=== PATIENT | male | born 1940 | race Caucasian/White ===

== ENCOUNTER 2016-06-18 09:49 | Inpatient (IN) | payer OTHER, MEDICARE ==
--- NOTE | 2016-06-15 16:49 | MH ---
cc: CHUY LAMA DATE OF ADMISSION 06/18/2016 ADMISSION DIAGNOSIS Difficulty with gait, short-term memory loss and urinary incontinence, evaluation for normal pressure hydrocephalus HISTORY OF PRESENT ILLNESS This is a 75-year-old male who presented to us on 05/11/2016 with complaints of difficulty walking, short term memory loss and urinary incontinence. He presented with his who states that his symptoms have progressively gotten worse after he was walking his dog two years ago and fell forward, hit head on a stop sign and had to go to the hospital for stitches. She states he had a CT of the head and it did not reveal any blood. She states since then he has had short, shuffled, wide-based gait, difficulty with short-term memory and urinary incontinence. She states he wears Depends now, because he sometimes has michelle incontinence of urine. His short-term memory is also bad and she states he has been forgetting to take his medication and she has gotten him a pill case to help him remember. He has bone on bone in his ankles and has some difficulty ambulating related to this, but he has a distinct wide-based short shuffled gait. PAST MEDICAL HISTORY 1. Hypertension, 2. Dementia, 3. Depression, 4. Gastroesophageal esophageal reflux disease, 5. Hyperlipidemia. PAST SURGICAL HISTORY 1. Knee replacement 2. Appendectomy when he is 8 years old MEDICATIONS 1. Pantoprazole 40 mg daily. 2. Simvastatin 20 mg daily. 3. Hydrochlorothiazide 25 mg daily. 4. Quinapril 40 mg daily. 5. Finasteride 5 mg every other day 6. Fluoxetine 10 mg daily. 7. Vitamin C 250 mg daily, 8. Vitamin B6 100 mg daily. 9. Vitamin D 1000 international units daily. ALLERGIES She has no known drug allergies. FAMILY HISTORY His mother is , had cancer. His father is of natural causes. He has a brother who is alive. SOCIAL HISTORY He is a high school administer. He is . He has two children. He does not smoke. REVIEW OF SYSTEMS CONSTITUTIONAL: Denies any fever or chills. EARS, NOSE and THROAT: No pharyngitis, exudates or bloody drainage from his nose CARDIOVASCULAR: He denies any chest pain or palpitations RESPIRATORY: No cough or shortness of breath GENITOURINARY: No dysuria OR hematuria. MUSCULOSKELETAL: Positive for unsteady gait. SKIN: No rashes or pruritus. NEUROLOGIC: Positive for difficulty with memory and confusion. GASTROINTESTINAL: No nausea, vomiting, abdominal pain PSYCHIATRIC: No anxiety. Positive for depression. ENDOCRINE: Positive for polyuria, HEMATOLOGIC: No bruising or bleeding tendencies. PHYSICAL EXAMINATION HEAD: Normocephalic, atraumatic. NECK: Supple. No carotid bruits heard on auscultation. LUNGS: Clear to auscultation bilaterally HEART: Regular rate and rhythm, normal S1, S2 ABDOMEN: Soft, nontender. Positive bowel sounds. He is obese. SKIN: Reveals no cyanosis or erythema MUSCULOSKELETAL: He has 5/5 strength in the upper and lower extremities. He ambulates with a wide-based, short, shuffled gait. NEUROLOGIC: He is awake, alert, oriented. Cranial nerves II-XII appear grossly intact. Speech is fluent. Comprehension is good. He follows commands well. sensation is intact in the upper and lower extremities. IMAGING STUDIES Reviewed an MRI of the brain from May 03, 2016 which reveals ventriculomegaly with periventricular white matter, transependymal foot migration. IMPRESSION A 75-year-old male with a two-year history of progressively worsening short-term memory loss, unsteady gait and urinary incontinence. He does have ventriculomegaly with transependymal foot migration noted on the MRI scan of the brain. 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 PLAN We have discussed temporary lumbar spinal drain to see if this will help with his symptoms and then, if so, we would consider a ventriculoperitoneal shunt placement. The procedure was explained in detail and all of their questions were answered to their satisfaction. The patient will be scheduled for lumbar spinal drain placement with radiology special procedures group and he will subsequently be admitted to the hospital. Chuy Lama MD Dictated by MARISELA Reed/ /4:17 PM /4:36 PM
[~2016-06-18] VITALS: Ht 180.3 cm; Wt 107.2 kg
[2016-06-18] VITALS (7 sets, daily range): BP systolic 141–155; BP diastolic 86–117; PULSE 45–135; RESP 16–21; TEMP 96.8–98; O2SAT 93–99
[~2016-06-18 09:49] MED LIST: DIFL500T PO; FINA5TAB2 PO; FLUO10CA5 PO; HYDR25TA5 PO; PANT40TA3 PO; PYRI1TAB; QUIN40TA2 PO; SIMV20TA PO; VESI5TAB PO; VITA250T3 PO
[2016-06-18] MEDS ORDERED: VISICAP PO (10:17)
[2016-06-18] MEDS ORDERED: VITA100018 PO (10:17)
[2016-06-18] MEDS ORDERED: ACETAMINOPHEN 325 MG TAB PO PRN (10:45)
[2016-06-18] MEDS ORDERED: cloNIDine HCL 0.1 MG TAB PO PRN (10:45)
[2016-06-18] MEDS ORDERED: SODIUM CHLORIDE 0.9% FLUSH 5 ML FLUSH IVF PRN (10:45)
[2016-06-18] MEDS ORDERED: MORPHINE SULFATE 4 MG/ML INJ IV PRN (10:45)
[2016-06-18] MEDS ORDERED: ceFAZolin 2 GM PREMIX 50 ML IV SCH (10:45)
[2016-06-18] MEDS ORDERED: MAGNESIUM HYDROXIDE SUSP 30 ML CUP PO PRN (10:45)
[2016-06-18] MEDS: SODIUM CHLORIDE 0.9% FLUSH 5 ML FLUSH IVF SCH ×2 (10:45→21:00)
[2016-06-18] MEDS ORDERED: ACETAMINOPHEN/HYDROcodone 325 MG/10 MG TAB PO PRN (10:45)
[2016-06-18] MEDS ORDERED: SODIUM CHLOR 0.45% 1000 ML IV SCH (11:00)
[2016-06-18 11:05] LABS: AUTOMATED NEUTROPHIL # 5.5 TH/MM3 (1.8-7.7); BASOPHIL # 0.1 TH/MM3 (0-0.2); BASOPHIL % 0.6 % (0.0-2.0); EOSINOPHIL # 0.1 TH/MM3 (0-0.4); EOSINOPHIL % 1.5 % (0.0-4.0); HEMATOCRIT 47.6 % (39.0-51.0); HEMO FLAGS DIFF FINAL; LYMPH % 27.3 % (9.0-44.0); LYMPHOCYTE # 2.3 TH/MM3 (1.0-4.8); MEAN CELL VOLUME 90.1 FL (80.0-100.0); MEAN CORPUSCULAR HEMOGLOBIN 30.8 PG (27.0-34.0); MEAN CORPUSCULAR HGB CONC 34.1 % (32.0-36.0); MONO % 6.1 % (0.0-8.0); NEUT % 64.5 % (16.0-70.0); PLATELET COUNT 179 TH/MM3 (150-450); RED BLOOD COUNT 5.28 MIL/MM3 (4.50-5.90); RED CELL DISTRIBUTION WIDTH 13.3 % (11.6-17.2); WHITE BLOOD COUNT 8.5 TH/MM3 (4.0-11.0)
[2016-06-18 11:15] LABS: APTT (PATIENT) 25.7 SEC (24.3-30.1)
[2016-06-18 11:17] LABS: BICARBONATE 27.3 MEQ/L (21.0-32.0)
[2016-06-18] MEDS ORDERED: MIDAZOLAM HCL 5 MG/5 ML VIAL ONE (12:53)
[2016-06-18] MEDS ORDERED: fentaNYL CITRATE 250 MCG/5 ML AMP ONE (12:53)
--- NOTE | 2016-06-18 13:26 | PD.RAD ---
Post Procedure Progress Note Pre Procedure Diagnosis: (1) Normal pressure hydrocephalus Post Procedure Diagnosis: (1) Normal pressure hydrocephalus Procedure Date: Jun 18, 2016 Supervising Radiologist: Linwood Laguerre Estimated blood loss: None Anesthesia: Local, Conscious Sedation Plan of Activity Patient to Unit: ROPU Patient Condition: Good Additional Comments: Lumbar drain placed at the L3/L4 level without difficulty. Catheter tip at T11. Clear CSF draining. See PACS Report for procedural detail/treatment Linwood Laguerre MD Jun 18, 2016 13:26
--- NOTE | 2016-06-18 16:09 | RADRPT ---
EXAM DATE/TIME: 06/18/2016 11:50 [facility] COMPARISON: No previous studies available for comparison. INDICATIONS : Patient is in need of a lumbar drain placement for evaluation of NPH. MEDICAL HISTORY : History of short term memory loss, urinary incontinence, GERD, depression. SURGIAL HISTORY : History of appendectomy, knee replacement. ENCOUNTER: Initial ACUITY: >1 year PAIN SCORE: 0/10 LUMBAR PUNCTURE TIME: 1314 hours FLUORO TIME: 1.7 minutes IMAGE SERIES: 1 SEDATION TIME: 15 minutes LEVEL: Tip of lumbar drain was placed at T11 MEDICATION(S): 1.) 0.5 mg IV 2.) 25 mcg IV Prophylactic antibiotics were administered with appropriate pre-procedure timing. Vancomycin within 2 hrs of procedure, Ancef (or alternative) within 1 hr of procedure. DEVICE(S): 1.) 5 Hebrew lumbar drain catheter PROCEDURE : 1. Fluoroscopically guided lumbar drain placement. 2. Conscious sedation with continuous EKG and oximetry monitoring. The risks, benefits and alternatives to the procedure were explained and verbal and written consent w as obtained. The site was prepped in sterile fashion. Full sterile technique was used, including ca p, mask, sterile gloves and gown and a large sterile sheet. Hand hygiene and 2% chlorhexidine and/or betadine/alcohol prep was utilized per protocol for cutaneous antisepsis. The skin and subcutaneous tissues were infiltrated with local anesthetic solution. With fluoroscopic guidance the lumbar thecal sac was punctured with a 14 gauge Touhy needle. There wa s immediate return of clear CSF. A lumbar drain was placed with its tip at the level of the T11 as de scribed above and the catheter was sutured in place. CSF was identified returning from the catheter a t the termination of the procedure. Conscious sedation was performed with the prescribed dosages and duration as above in the presence of an independent trained radiology nurse to assist in the monitoring of the patient. EKG and oximetry remained stable throughout the procedure. The patient tolerated the procedure well and there were n o complications. The patient was sent to post anesthesia recovery in stable condition. CONCLUSION: Uncomplicated lumbar drain placement as above. Linwood Laguerre MD on June 18, 2016 at 15:57 Board Certified Radiologist. This report was verified electronically.
[2016-06-18] MEDS: SODIUM CHLOR 0.9% 1000 ML INJ 1,000 ML IV SCH (20:42)
[2016-06-19 01:04] VITALS: BP 163/88; PULSE 46; RESP 20; TEMP 95.9; O2SAT 96
[2016-06-19 05:05] VITALS: BP 136/86; PULSE 42; RESP 20; TEMP 96.3; O2SAT 97
[2016-06-19] MEDS: SODIUM CHLOR 0.9% 1000 ML INJ 1,000 ML IV SCH ×2 (06:15→16:42)
[2016-06-19 07:51] VITALS: BP 175/95; PULSE 52; RESP 18; TEMP 96.9; O2SAT 94
[2016-06-19] MEDS: ONDANSETRON HCL 4 MG/2 ML VIAL IV PRN (08:32)
[2016-06-19] MEDS: CHOLECALCIFEROL (VIT D3) 1000 UNIT TAB PO SCH (08:35)
[2016-06-19] MEDS: MULTIVITAMIN-OPHTHALMIC 1 TAB PO SCH (08:35)
[2016-06-19] MEDS: LISINOPRIL 20 MG TAB PO SCH (08:36)
[2016-06-19] MEDS: FLUoxetine HCL 10 MG CAP PO SCH (08:36)
[2016-06-19] MEDS: SODIUM CHLORIDE 0.9% FLUSH 5 ML FLUSH IVF SCH ×2 (08:36→21:00)
[2016-06-19] MEDS: PRAVASTATIN SOD 40 MG TAB PO SCH (08:36)
[2016-06-19] MEDS: PANTOPRAZOLE SOD 40 MG DELAYED RELEASE TAB PO SCH (08:36)
[2016-06-19] MEDS: HYDROCHLOROTHIAZIDE 25 MG TAB PO SCH (08:36)
--- NOTE | 2016-06-19 10:23 | HHI.NSPN ---
(Blu Banda) History Chief Complaint: Mild nausea this am. (Blu Banda) Interval History 06/19/16: Pt underwent lumbar spinal drain placement for NPH evaluation. He denies headache laying flat. Mild nausea this morning. Urinating well. ( Blu Banda) Review of Systems General: Negative for: fever, chills, insomnia Respiratory: Negative for: shortness of breath, cough, sputum Cardiovascular: Negative for: chest pain Gastrointestinal: Negative for: nausea, vomitting, diarrhea, constipation ( Blu Banda) Exam Results Vital Signs Date Time Temp Pulse Resp B/P Pulse Ox O2 Delivery O2 Flow Rate FiO2 06/19/16 07:51 96.9 52 18 175/95 94 06/18/16 21:05 Room Air Intake and Output 06/18/16 06/18/16 06/19/16 08:00 16:00 00:00 Output Total 730 ml Balance -730 ml (Blu Banda) Physical Examination Resp: CTA bilaterally Heart: NSR no murmurs Abd: Soft positive bs Skin: No cyanosis or erythema Muscle: Moves all 4 extremities well. Ambulated with PT yesterday Neuro: Pt awake and alert. Mildly confused. Follows commands well. Speech clear. Lumbar spinal drain in place draining clear CSF. (Blu Banda) Lab, Micro, Other Results 06/18/16 06/18/16 06/19/16 15:00 23:00 07:00 Output Total 730 ml 280 ml Balance -730 ml -280 ml Output Urine Total 650 ml 200 ml Drainage Total 80 ml 80 ml # Bowel Movements 0 Laboratory Tests Test 06/18/16 10:33 White Blood Count 8.5 TH/MM3 Red Blood Count 5.28 MIL/MM3 Hemoglobin 16.2 GM/DL Hematocrit 47.6 % Mean Corpuscular Volume 90.1 FL Mean Corpuscular Hemoglobin 30.8 PG Mean Corpuscular Hemoglobin 34.1 % Concent Red Cell Distribution Width 13.3 % Platelet Count 179 TH/MM3 Mean Platelet Volume 8.3 FL Neutrophils (%) (Auto) 64.5 % Lymphocytes (%) (Auto) 27.3 % Monocytes (%) (Auto) 6.1 % Eosinophils (%) (Auto) 1.5 % Basophils (%) (Auto) 0.6 % Neutrophils # (Auto) 5.5 TH/MM3 Lymphocytes # (Auto) 2.3 TH/MM3 Monocytes # (Auto) 0.5 TH/MM3 Eosinophils # (Auto) 0.1 TH/MM3 Basophils # (Auto) 0.1 TH/MM3 CBC Comment DIFF FINAL Differential Comment Prothrombin Time 11.0 SEC Prothromb Time International 1.0 RATIO Ratio Activated Partial 25.7 SEC Thromboplast Time Sodium Level 138 MEQ/L Potassium Level 4.0 MEQ/L Chloride Level 100 MEQ/L Carbon Dioxide Level 27.3 MEQ/L Anion Gap 11 MEQ/L Blood Urea Nitrogen 23 MG/DL Creatinine 1.43 MG/DL Estimat Glomerular Filtration 48 ML/MIN Rate Random Glucose 160 MG/DL Calcium Level 9.5 MG/DL (Blu Banda) Medical Decision Making Impression and Plan A: 75 y/o M s/p lumbar spinal drain placement for evaluation of NPH P: Continue with lumbar spinal drain likely d/c drain in am tomorrow. Continue with PT (Blu Banda) Attending Statement The exam, history, and the medical decision-making described in the above note were completed with the assistance of the mid-level provider. I reviewed and agree with the findings presented. I attest that I had a [id number] encounter with the patient on the same day, and personally performed and documented my assessment and findings in the medical record. relates that the she noted some improvement in his gait when he was walking with physical therapy. Continue with the lumbar spinal drainage until tomorrow morning. ( Hugo Sanchez MD) Blu Banda Jun 19, 2016 10:23 Hugo Sanchez MD Jun 19, 2016 17:09
[2016-06-19 12:21] VITALS: BP 124/65; PULSE 88; RESP 18; TEMP 96.2; O2SAT 94
[2016-06-19 16:15] VITALS: BP 121/71; PULSE 52; RESP 18; TEMP 97.1; O2SAT 92
[2016-06-19 20:00] VITALS: BP 124/67; PULSE 57; RESP 20; TEMP 98.5; O2SAT 94
[2016-06-20] VITALS: BP 137/78; PULSE 50; RESP 18; TEMP 96.7; O2SAT 96
[2016-06-20] MEDS: ONDANSETRON HCL 4 MG/2 ML VIAL IV PRN (00:28)
[2016-06-20] MEDS: SODIUM CHLOR 0.9% 1000 ML INJ 1,000 ML IV SCH (02:42)
[2016-06-20 04:00] VITALS: BP 149/85; PULSE 65; RESP 20; TEMP 95.7; O2SAT 96
[2016-06-20 08:17] VITALS: BP 142/75; PULSE 48; RESP 19; TEMP 97; O2SAT 94
[2016-06-20] MEDS ORDERED: FINASTERIDE 5 MG TAB PO SCH (09:00)
--- NOTE | 2016-06-20 09:27 | HHI.NSPN ---
(Blu Banda) History Chief Complaint: Mild nausea last night. (Blu Banda) Interval History 06/19/16: Pt underwent lumbar spinal drain placement for NPH evaluation. He denies headache laying flat. Mild nausea this morning. Urinating well. 06/20/16: Pt awake and alert. Had mild headache last night and nausea. Feels okay now. Lumbar spinal drain in place draining well. (Blu Banda) Review of Systems General: Negative for: fever, chills, insomnia Respiratory: Negative for: shortness of breath, cough, sputum Cardiovascular: Negative for: chest pain Gastrointestinal: Negative for: nausea, vomitting, diarrhea, constipation ( Blu Banda) Exam Results Vital Signs Date Time Temp Pulse Resp B/P Pulse Ox O2 Delivery O2 Flow Rate FiO2 06/20/16 08:17 97.0 48 19 142/75 94 06/19/16 21:08 Room Air Intake and Output 06/19/16 06/19/16 06/20/16 08:00 16:00 00:00 Intake Total 600 ml 300 ml Output Total 280 ml 100 ml Balance -280 ml 600 ml 200 ml (Blu Banda) Physical Examination Resp: CTA bilaterally Heart: NSR no murmurs Abd: Soft positive bs Skin: No cyanosis or erythema Muscle: Moves all 4 extremities well. Neuro: Pt awake and alert. Follows commands well. Speech clear. Lumbar spinal drain in place draining clear CSF. (Blu Banda) Lab, Micro, Other Results 06/19/16 06/19/16 06/20/16 15:00 23:00 07:00 Intake Total 600 ml 300 ml 1100 ml Output Total 100 ml 280 ml Balance 600 ml 200 ml 820 ml Intake Oral 600 ml 300 ml 300 ml IV Total 800 ml Output Urine Total 100 ml 200 ml Drainage Total 80 ml # Voids 2 # Bowel Movements 2 (Blu Banda) Medical Decision Making Impression and Plan A: 75 y/o M s/p lumbar spinal drain placement for evaluation of NPH P: Discussed with PT this am he will have PT early and will remove spinal drain. Pt will need to be on bedrest for 6 hours after drain removed. Discharge home later today if no CSF drainage from exit site. (Blu Banda) Attending Statement The exam, history, and the medical decision-making described in the above note were completed with the assistance of the mid-level provider. I reviewed and agree with the findings presented. I attest that I had a [id number] encounter with the patient on the same day, and personally performed and documented my assessment and findings in the medical record. (Hugo Sanchez MD) Blu Banda Jun 20, 2016 09:27 Hugo Sanchez MD Jun 20, 2016 18:38
[2016-06-20] MEDS: PRAVASTATIN SOD 40 MG TAB PO SCH (09:35)
[2016-06-20] MEDS: HYDROCHLOROTHIAZIDE 25 MG TAB PO SCH (09:36)
[2016-06-20] MEDS: PANTOPRAZOLE SOD 40 MG DELAYED RELEASE TAB PO SCH (09:36)
[2016-06-20] MEDS: CHOLECALCIFEROL (VIT D3) 1000 UNIT TAB PO SCH (09:36)
[2016-06-20] MEDS: LISINOPRIL 20 MG TAB PO SCH (09:36)
[2016-06-20] MEDS: SODIUM CHLORIDE 0.9% FLUSH 5 ML FLUSH IVF SCH (09:37)
[2016-06-20] MEDS: FLUoxetine HCL 10 MG CAP PO SCH (09:37)
[2016-06-20] MEDS: MULTIVITAMIN-OPHTHALMIC 1 TAB PO SCH (12:40)
[2016-06-20 12:43] VITALS: BP 145/88; PULSE 82; RESP 19; TEMP 96.3; O2SAT 96
[2016-06-20 17:23] VITALS: BP 142/85; PULSE 53; RESP 19; TEMP 97.2; O2SAT 95
== END 2016-06-20 19:30 | disposition home or self-care (01) | DRG 556 ==
LOC: HROP 09:49 → HRIP 09:52 → HROP 10:51 → N05A 10:51
PROVIDERS: ADMIT Neurological Surgery; ATTEND Neurological Surgery
PROC: 009U30Z Drainage of Spinal Canal with Drainage Device, Percutaneous Approach (ICD-10-PCS; principal; 2016-06-18)
DX: R26.2 Difficulty in walking, not elsewhere classified (principal); F03.90 Unspecified dementia, unspecified severity, without behavioral disturbance, psychotic disturbance, mood disturbance, and anxiety; R41.3 Other amnesia; R32 Unspecified urinary incontinence; I10 Essential (primary) hypertension; F32.9 Major depressive disorder, single episode, unspecified; K21.9 Gastro-esophageal reflux disease without esophagitis; K44.9 Diaphragmatic hernia without obstruction or gangrene; E78.5 Hyperlipidemia, unspecified; Z96.659 Presence of unspecified artificial knee joint
CPT/HCPCS: 63741; 77003; 80048; 85025; 85610; 85730; 94150; 99152; C1755; J0690; J2250; J2270; J2405; J3010; J7030

== ENCOUNTER 2016-07-19 09:37 | Inpatient (IN) | payer OTHER, MEDICARE ==
[~2016-07-19] VITALS: Ht 177.8 cm; Wt 102.7 kg
[~2016-07-19 09:37] MED LIST changes: -B-COTAB35 PO; -HYDR-3583 PO; -PYRI1TAB
[2016-07-19] MEDS ORDERED: B-COTAB35 PO (13:01)
--- NOTE | 2016-07-19 17:39 | MH ---
cc: MIKIE ENCARNACIONHUGO DATE OF ADMISSION: 07/20/2016 ADMISSION DIAGNOSIS Normal pressure hydrocephalus HISTORY OF PRESENT ILLNESS This is a 75-year-old male who presented to us for an evaluation of difficulty walking, short term memory loss and urinary incontinence. He presented with his who states his symptoms have progressively gotten worse and he has a history of walking his dog two years ago and he fell forward and hit his head on a stop sign and had to go the hospital for stitches. She states he had a CT of his head which did not reveal any blood. She states since then he has had a short shuffled wide based gait and difficulty with short-term memory and urinary incontinence. She states that he wears Depends now because he sometimes has michelle incontinence of urine. His short-term memory is also bad and he has been forgetting to take his medications and she has gotten him a pill case to help him remember. 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 The patient had an MRI scan of the brain on May 03, 2016 which reveals ventriculomegaly with periventricular white matter transependymal fluid migration which is suggestive of normal-pressure hydrocephalus. He was referred for temporary lumbar spinal drain with radiology special procedures group. The patient's states that he had improvement in his gait as well as his urinary incontinence. She states that he has not had much improvement in short-term memory loss, however. His gait has gone from wide based shuffled type of gait to a more normal stance and he is picking up his toes more rather than shuffling. His urinary incontinence has decreased from twice a night to once a night. PAST MEDICAL HISTORY 1. Gastroesophageal reflux disease, 2. Hyperlipidemia, 3. Hypertension, 4. Benign prostatic hypertrophy, 5. Depression, 6. Dementia. MEDICATIONS Current - 1. Simvastatin 20 mg daily 2. Hydrochlorothiazide 25 mg p.o. daily. 3. Quinapril 40 mg p.o. daily. 4. Finasteride 5 mg every other day 5. Fluoxetine 10 mg daily. 6. Vitamin C 250 mg daily 7. Vitamin D3 1000 international units daily, 8. Vitamin B6 100 mg daily ALLERGIES She has no known drug allergies. FAMILY HISTORY His mother is of cancer. His father is of natural causes. He has a brother who is alive. 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 He is . He has two children. He does not smoke and he has not smoked in the past. He drinks alcohol rarely. REVIEW OF SYSTEMS CONSTITUTIONAL: Denies any fever or chills. EARS, NOSE, THROAT: No pharyngitis, exudates or bloody drainage from his nose CARDIOVASCULAR: Denies any chest pain or palpitations RESPIRATORY: No cough or shortness of breath. GENITOURINARY:: No dysuria or hematuria. MUSCULOSKELETAL: Positive for wide-based short shuffled gait SKIN: No rashes or pruritus. NEUROLOGIC: No difficulty with speech. Positive for difficulty with memory. Positive for difficulty with walking with a short shuffled wide-based gait GASTROINTESTINAL: No nausea, vomiting, abdominal pain. PSYCHIATRIC: No anxiety. Positive for depression symptoms ENDOCRINE: Positive for polyuria. No polydipsia. HEMATOLOGIC: No bruising or bleeding tendencies. PHYSICAL EXAMINATION HEAD: Normocephalic, atraumatic. NECK: Supple. No carotid bruits heard. LUNGS: Clear to auscultation bilaterally. HEART: Regular rate and rhythm, normal S1, S2. ABDOMEN: Soft, nontender. Positive bowel sounds. She is obese. SKIN: No cyanosis or erythema. MUSCULOSKELETAL: He has 5/5 strength in the upper and lower extremities. He ambulates without any assistive devices. He initially had a wide-based short shuffled gait which improved to more of a normal stance and less shuffling after temporary lumbar spinal drain. NEUROLOGIC: He is awake, alert, oriented. Cranial nerves II-XII appear grossly intact. Speech is fluent. Comprehension is good. He does have poor short-term memory and recall. IMPRESSION A 75-year-old male who presented to us for evaluation of urinary incontinence, poor short-term memory and wide-based short shuffling gait. He has had an MRI scan of his brain which was consistent with normal pressure hydrocephalus findings with ventricular enlargement as well as transependymal fluid migration. He has undergone temporary lumbar spinal drain and had improvement in his symptoms of urinary incontinence. He had his gait abnormality, although he continues to have poor memory. PLAN We have discussed the treatment options with the patient and his and they are both electing to proceed with ventriculoperitoneal shunt placement since he has had improvement with temporary lumbar spinal drain. The procedure as well as the risk, benefit, alternative and recovery time were explained in great detail with the patient and his . We have discussed the risks involved with surgery include but not limited to bleeding, infection, muscle weakness, voice hoarseness, difficulty swallowing, heart attack, stroke, blood clots, shunt obstruction, among others. The patient and his understand the procedure as well as the risks involved and they are requesting that we proceed. He is therefore scheduled accordingly. Hugo Sanchez MD Dictated by MARISELA Reed/ /5:01 PM /5:14 PM
[2016-07-20 11:39] VITALS: BP 139/88; PULSE 77; RESP 18; TEMP 98.3; O2SAT 96
[2016-07-20] MEDS ORDERED: VANCOMYCIN HCL 1000 MG VIAL ONE ×2 (11:52→13:02)
[2016-07-20] MEDS ORDERED: SODIUM CHLOR 0.9% 250 ML INJ 250 ML ONE (11:52)
[2016-07-20] MEDS ORDERED: NEOSTIGMINE 3 MG/3 ML SYR IV ONE (12:00)
[2016-07-20] MEDS ORDERED: VANCOMYCIN HCL 1000 MG ON-CALL/NS 250 ML IV SCH ×2 (12:00)
[2016-07-20] MEDS ORDERED: ePHEDrine/NS 25 MG/5 ML SYR IV ONE (12:00)
[2016-07-20] MEDS ORDERED: ONDANSETRON HCL 4 MG/2 ML VIAL IV PUSH ONE (12:00)
[2016-07-20] MEDS ORDERED: INSULIN HUMAN REGULAR 1,000 UNITS/10 ML VIAL SQ PRN (12:00)
[2016-07-20] MEDS ORDERED: PROPOFOL 200 MG/20 ML AMP IV ONE (12:00)
[2016-07-20] MEDS ORDERED: PHENYLEPH/NS 1000 MCG/10 ML SYR IV ONE (12:00)
[2016-07-20] MEDS ORDERED: LACTATED RINGER'S 1000 ML IV PRN (12:00)
[2016-07-20] MEDS ORDERED: METOPROLOL TARTRATE 25 MG TAB PO PRN (12:00)
[2016-07-20] MEDS ORDERED: CHLORHEXIDINE GLUCONATE 2 % 1 PACK (2 CLOTHS) TOPICAL PRN (12:00)
[2016-07-20] MEDS ORDERED: SODIUM CHLORID 0.9% 500 ML IV PRN (12:00)
[2016-07-20] MEDS ORDERED: POVIDONE IODINE 5% (ANTISEPSIS KIT) 4 APPLICATIONS EACH NARE PRN (12:00)
[2016-07-20] MEDS ORDERED: SODIUM CHLOR 0.9% 1000 ML INJ 1,000 ML IV ONE (12:00)
[2016-07-20] MEDS ORDERED: BUPIVACAINE/EPINEPHRINE 0.5% PF 30 ML VIAL ONE (12:36)
[2016-07-20] MEDS ORDERED: GELFOAM SIZE 100 ONE (12:36)
[2016-07-20] MEDS ORDERED: THROMBIN (TOPICAL) 5,000 UNIT VIAL ONE (12:36)
[2016-07-20] MEDS ORDERED: GENTAMICIN SULFATE 80 MG/2 ML VIAL ONE (12:36)
[2016-07-20] MEDS ORDERED: ACETAMINOPHEN 1000 MG/100 ML VIAL IV ONE (13:39)
[2016-07-20] MEDS ORDERED: MIDAZOLAM HCL 2 MG/2 ML VIAL ONE (13:40)
[2016-07-20] MEDS ORDERED: DEXAMETHASONE SOD PHOS 4 MG/ML VIAL ONE (13:40)
[2016-07-20] MEDS ORDERED: FAMOTIDINE 20 MG/2 ML VIAL ONE (13:40)
[2016-07-20] MEDS ORDERED: NS + KCL 20 MEQ INJ 1,000 ML IV SCH (15:50)
--- NOTE | 2016-07-20 15:57 | PD.OP ---
Carmen Gale MD Operative Report Date of Surgery: Jul 20, 2016 Preoperative Diagnosis: Normal pressure hydrocephalus Postoperative Diagnosis: Same Procedure: Right frontal ventriculoperitoneal shunt placement with Codman programmable valve Anesthesia: Gen. endotracheal by Que Bravo Surgeon: Hugo Sanchez M.D. Boning Room Worker(s): Sadia Patterson Operation and Findings: Following administration of general endotracheal anesthesia, patient was placed in a supine position and a Perkins catheter placed along with sequential compression devices. Vancomycin 1 g was and administered intravenously. The head secured in donut and turned 30 to the left side and a shoulder roll placed in the right side and all pressure points adequately padded. The right frontal parietal occipital anterior neck and chest and abdomen area was shaved and prepped with a Betadine solution and Chloraprep. Draping with Ioban also undertaken along with the usual sterile draping. Using landmarks of 11 cm behind the nasion and 3 cm right of the midline a curvilinear right frontal incision was made after infiltrating the skin was 0.5% Marcaine with epinephrine solution. A sharron hole was made with an automatic security system analyst and the underlying dura cauterized with bipolar cautery and opened in a cruciate format. Right subcostal abdominal incision site was then infiltrated with 0.5% Marcaine with epinephrine solution and incision made extending down through the anterior fascia of the rectus sheath and then the posterior fascia also incised and the peritoneal wall identified and also incised in a 3-0 silk pursestring suture was been placed around the opening. A subcutaneous tunnel was then created between the frontal and the abdominal incision site with a small interim incision in the neck and the bactiseal Codman peritoneal catheter was then tunneled through. The catheter was connected to a SendRRm Codman programmable valve set at 100 mm a water setting with the anti-siphon device. The ventricular catheter was then passed the 6 cm in depth and clear CSF encountered and this was then connected to the proximal reservoir valve with a 2 -0 silk tie. Good distal CSF flow run off was noted from the peritoneal catheter which was then dropped into the peritoneum and the pursestring suture was tied along with the approximation of the anterior rectus sheath with 3-0 Vicryl interposition and 3-0 Vicryl subcuticular cyst also place an interrupted fashion and final skin closure with gregory. Incision sites were irrigated with the saline solution prior to closure. The right frontal and small neck incision areas were then also approximated with 3-0 Vicryl galeal stitches and gregory. Sterile dressings then applied and the patient extubated and taken recovery room. There were no intraoperative complications and all sponge and needle, was correct at the end of the procedure. Estimated blood loss less than 10 cc.cc. Hugo Sanchez MD Jul 20, 2016 15:57
[2016-07-20] MEDS ORDERED: PROCHLORPERAZINE INJ 10 MG/2 ML VIAL IV PUSH PRN (16:00)
[2016-07-20] MEDS ORDERED: MAGNESIUM HYDROXIDE SUSP 30 ML CUP PO PRN (16:00)
[2016-07-20] MEDS ORDERED: MORPHINE SULFATE 4 MG/ML INJ IV PRN (16:00)
[2016-07-20] MEDS ORDERED: SODIUM CHLORIDE 0.9% FLUSH 10 ML FLUSH IV FLUSH PRN (16:00)
[2016-07-20] MEDS ORDERED: ZOLPIDEM TARTRATE 5 MG TAB PO PRN (16:00)
[2016-07-20] MEDS ORDERED: POTASSIUM CHLOR 20 MEQ PREMIX 100 ML IV PRN (16:00)
[2016-07-20] MEDS ORDERED: ONDANSETRON HCL 4 MG/2 ML VIAL IV PRN (16:00)
[2016-07-20] MEDS ORDERED: ACETAMINOPHEN/HYDROcodone 325 MG/10 MG TAB PO PRN ×2 (16:00)
[2016-07-20] MEDS ORDERED: CALCIUM GLUCONATE INJ 1 GM in SODIUM CHLORIDE 0.9% INJ 100 ML IV PRN (16:00)
[2016-07-20] MEDS ORDERED: ACETAMINOPHEN 325 MG TAB PO PRN (16:00)
[2016-07-20] MEDS ORDERED: ALUMINUM/MAGNESIUM/SIMETH 30 ML CUP PO PRN (16:00)
[2016-07-20] MEDS ORDERED: RESP: ALBUTEROL 2.5 MG/3 ML NEB (PRN) NEB (16:00)
[2016-07-20] MEDS ORDERED: MENTHOL LOZENGE BUCCAL PRN (16:00)
[2016-07-20] MEDS ORDERED: MAGNESIUM SULFATE INJ 2 GM in SODIUM CHLORIDE 0.9% INJ 100 ML IV PRN (16:00)
[2016-07-20] MEDS ORDERED: cloNIDine HCL 0.1 MG TAB PO PRN (16:00)
[2016-07-20] MEDS ORDERED: fentaNYL CITRATE 250 MCG/5 ML AMP ONE (16:17)
[2016-07-20] MEDS ORDERED: *morphine SULFATE 8 MG/ML PERIprocedure ONLY ONE ×3 (16:24→17:14)
[2016-07-20 17:12] LABS: BICARBONATE 28.1 MEQ/L (21.0-32.0); POTASSIUM 4.1 MEQ/L (3.5-5.1)
[2016-07-20] MEDS ORDERED: *diphenhydrAMINE HCL 50 MG/ML VIAL PERIprocedural Use ONLY ONE (17:27)
[2016-07-20 20:00] VITALS: BP 158/100; PULSE 97; RESP 18; TEMP 96; O2SAT 95
--- NOTE | 2016-07-20 20:05 | RADRPT ---
EXAM DATE/TIME: 07/20/2016 19:51 [facility] COMPARISON: No previous studies available for comparison. INDICATIONS : Post operative. RADIATION DOSE: 48.36 CTDIvol (mGy) MEDICAL HISTORY : Hypertension. TBI 05/2016 SURGICAL HISTORY : WELFARE INTERVIEWER shunt. ENCOUNTER: Initial ACUITY: 1 day PAIN SCALE: Non-responsive LOCATION: cranial TECHNIQUE: Multiple contiguous axial images were obtained of the head. Using automated exposure control and adj ustment of the mA and/or kV according to patient size, radiation dose was kept as low as reasonably a chievable to obtain optimal diagnostic quality images. FINDINGS: CEREBRUM: Right frontal ventricle ostomy catheter with tip in the region of the right lateral ventricle. Minima l pneumocephaly. Ventricles are dilated. There is scattered areas of low attenuation in the periventr icular white matter. No evidence of midline shift, mass lesion, hemorrhage or acute infarction. No extra-axial fluid collections are seen. POSTERIOR FOSSA: The cerebellum and brainstem are intact. The 4th ventricle is midline. The cerebellopontine angle i s unremarkable. EXTRACRANIAL: The visualized portion of the orbits is intact. SKULL: The calvaria is intact. No evidence of skull fracture. Scattered calvarial lucencies. CONCLUSION: 1. Ventricles are dilated. 2. Status post right ventriculostomy catheter placement with minimal pneumocephaly. 3. Scattered calvarial lucencies of uncertain etiology. Blu Najera MD on July 20, 2016 at 20:02 Board Certified Radiologist. This report was verified electronically.
[2016-07-20] MEDS: SODIUM CHLORIDE 0.9% FLUSH 10 ML FLUSH IV FLUSH SCH (20:38)
[2016-07-20] MEDS: DOCUSATE SODIUM 100 MG CAP PO SCH (20:38)
[2016-07-20 21:57] VITALS: O2SAT 94
[2016-07-20 22:00] VITALS: BP 181/60; PULSE 89; RESP 18; TEMP 96; O2SAT 95
[2016-07-21 04:00] VITALS: BP 131/88; PULSE 73; RESP 20; TEMP 96.1; O2SAT 93
[2016-07-21 08:00] VITALS: BP 134/83; PULSE 70; RESP 18; TEMP 97.7; O2SAT 93
[2016-07-21] MEDS: DOCUSATE SODIUM 100 MG CAP PO SCH (08:51)
[2016-07-21] MEDS: SODIUM CHLORIDE 0.9% FLUSH 10 ML FLUSH IV FLUSH SCH (08:59)
[2016-07-21] MEDS ORDERED: MULTIVITAMINS/MINERALS THERAPEUTIC TAB PO SCH (09:00)
[2016-07-21] MEDS ORDERED: LISINOPRIL 20 MG TAB PO SCH (09:00)
[2016-07-21] MEDS ORDERED: HYDROCHLOROTHIAZIDE 25 MG TAB PO SCH (09:00)
[2016-07-21] MEDS ORDERED: FLUoxetine HCL 10 MG CAP PO SCH (09:00)
[2016-07-21] MEDS ORDERED: VITAMIN B CMPLX/VITC/FOLIC AC CAP PO SCH (09:00)
[2016-07-21] MEDS ORDERED: PRAVASTATIN SOD 40 MG TAB PO SCH (09:00)
[2016-07-21] MEDS ORDERED: PANTOPRAZOLE SOD 40 MG DELAYED RELEASE TAB PO SCH (09:00)
[2016-07-21 09:51] VITALS: O2SAT 93
[2016-07-21 12:00] VITALS: BP 118/79; PULSE 92; RESP 18; TEMP 97.6; O2SAT 93
[2016-07-21] MEDS ORDERED: HYDR-3583 PO (12:56)
--- NOTE | 2016-07-21 12:56 | HHI.DCPOC ---
Discharge Care Plan Diagnosis: (1) Normal pressure hydrocephalus Your Health Problems Are: Difficulty with ADL Incision/Drains Exercise Tolerance Goals to Promote Your Health * To prevent worsening of your condition and complications * To maintain your health at the optimal level Directions to Meet Your Goals Take your medications as prescribed Follow your dietary instruction Follow activity as directed Keep your appointments as scheduled Take your immunizations and boosters as scheduled If your symptoms worsen call your PCP, if no PCP go to Urgent Care Center or Emergency Room Smoking is Dangerous to Your Health. Avoid second hand smoke Call the 24-hour hour crisis hotline for domestic abuse at Sebastian Napier MD Jul 21, 2016 12:56
--- NOTE | 2016-07-21 12:59 | HHI.FF ---
Face to Face Verification Diagnosis: (1) Normal pressure hydrocephalus Physical Therapy Order: Evaluate and Treat, Improve ambulation Home Health Nursing Order: Signs/symptoms of disease process Wound care and dressing changes I have seen patient Jose E Chávez on 07/21/16. My clinical findings support the need for the requested home health care services because: Ltd mobility - disease progression Impaired cognition/judgement High risk of falls I certify that my clinical findings support that this patient is homebound because: Unsteady gait/balance Unsafe to leave home unassisted Unable to use public transportation Sebastian Napier MD Jul 21, 2016 12:59
--- NOTE | 2016-07-21 13:06 | HHI.NSPN ---
History Chief Complaint: unsteady gait Interval History 75-year-old male, history of NPH, status post [employer] shunt placement System Review Comments Denies headache, dizziness, nausea, vomiting, abdominal pain Exam Results Vital Signs Date Time Temp Pulse Resp B/P Pulse Ox O2 Delivery O2 Flow Rate FiO2 07/21/16 08:00 97.7 70 18 134/83 93 07/20/16 21:57 Nasal Cannula 4.00 Intake and Output 07/20/16 07/20/16 07/21/16 08:00 16:00 00:00 Intake Total 900 ml 350 ml Output Total 150 ml 1000 ml Balance 750 ml -650 ml Physical Examination Respirations clear to auscultation Cardiac regular without murmur Abdomen protuberant, slightly firm, nontender. Normal baseline per patient and family. Positive bowel sounds Incisions dry and intact with dressings in place Awake and alert Mild agitation Mild confusion Speech clear Answers all questions appropriately Follows commands well Extraocular movements and facial motor movement symmetric Sensation intact by touch all extremities Strength normal major flexion and extension groups all extremities He will get out of chair independently and ambulate. Medical Decision Making Impression and Plan Impression: Relatively stable neurologic exam postoperative. Patient with mild agitation and confusion this morning. Plan: Findings discussed with patient, family, nursing staff. His vital signs and neurologic exam are stable except for mild agitation and confusion. Possibly medication related. Patient has had some increasing confusion preoperative. The patient's family wishes to get him home today as patient will hopefully be more oriented and was confused in his usual home environment. Signs and symptoms to watch for have been fully discussed. Wound care discussed. Prescriptions written Home health care for home nursing assessment and physical therapy Sebastian Napier MD Jul 21, 2016 13:06
[2016-07-22] MEDS ORDERED: FINASTERIDE 5 MG TAB PO SCH (09:00)
== END 2016-07-21 14:28 | disposition home health service (06) | DRG 33 ==
LOC: HSDI 07-20 10:56 → N06B 07-20 20:01
PROVIDERS: ADMIT Neurological Surgery; ATTEND Neurological Surgery
PROC: 00160J6 Bypass Cerebral Ventricle to Peritoneal Cavity with Synthetic Substitute, Open Approach (ICD-10-PCS; principal; 2016-07-20 13:43)
DX: G91.2 (Idiopathic) normal pressure hydrocephalus (principal); F03.90 Unspecified dementia, unspecified severity, without behavioral disturbance, psychotic disturbance, mood disturbance, and anxiety; I10 Essential (primary) hypertension; K21.9 Gastro-esophageal reflux disease without esophagitis; R26.2 Difficulty in walking, not elsewhere classified; R41.3 Other amnesia; R32 Unspecified urinary incontinence; E78.5 Hyperlipidemia, unspecified; N40.0 Benign prostatic hyperplasia without lower urinary tract symptoms; F32.9 Major depressive disorder, single episode, unspecified; R45.1 Restlessness and agitation
CPT/HCPCS: 36415; 70450; 71020; 80048; 80053; 81001; 85025; 85610; 85730; 86850; 86900; 86901; 86920; 93005; 94150; J0131; J0690; J1100; J1200; J1580; J2250; J2270; J2370; J2405; J2710; J3010; J3370; J3480; J7050; J7120

== ENCOUNTER → 2016-07-19 | Outpatient (CLI) | payer OTHER ==
[~2016-07-19] MED LIST changes: +B-COTAB35 PO; -DIFL500T PO; +HYDR-3583 PO; -VESI5TAB PO; +VISICAP PO; +VITA100018 PO
[2016-07-19 12:57] LABS: AUTOMATED NEUTROPHIL # 5.3 TH/MM3 (1.8-7.7); BASOPHIL # 0.1 TH/MM3 (0-0.2); BASOPHIL % 0.6 % (0.0-2.0); EOSINOPHIL # 0.2 TH/MM3 (0-0.4); EOSINOPHIL % 1.7 % (0.0-4.0); HEMATOCRIT 46.8 % (39.0-51.0); HEMO FLAGS DIFF FINAL; LYMPH % 32.6 % (9.0-44.0); LYMPHOCYTE # 2.9 TH/MM3 (1.0-4.8); MEAN CELL VOLUME 91.2 FL (80.0-100.0); MEAN CORPUSCULAR HEMOGLOBIN 31.2 PG (27.0-34.0); MEAN CORPUSCULAR HGB CONC 34.3 % (32.0-36.0); MONO % 6.1 % (0.0-8.0); PLATELET COUNT 185 TH/MM3 (150-450); RED BLOOD COUNT 5.14 MIL/MM3 (4.50-5.90); RED CELL DISTRIBUTION WIDTH 13.5 % (11.6-17.2)
[2016-07-19 13:07] LABS: BLOOD, URINE NEG (NEG); COMMENT (UR) CULT NOT INDICATED; CULTURE IF INDICATED CULT NOT INDICATED; GLUCOSE,URINE NEG (NEG); KETONE, URINE NEG (NEG); MUCUS URINE FEW /lpf (OCC); NITRITE,URINE NEG (NEG); PH, URINE 5.5 (5.0-8.5); URINE COLOR YELLOW (YELLW/STRAW)
[2016-07-19 13:07] LABS: APTT (PATIENT) 24.8 SEC (24.3-30.1); PROTHROMBIN TIME - PATIENT 10.7 SEC (9.8-11.6)
[2016-07-19 13:25] LABS: ALKALINE PHOSPHATASE 68 U/L (45-117); ALT (GPT) 45 U/L (12-78); ANION GAP 8 MEQ/L (5-15); AST (GOT) 28 U/L (15-37); BICARBONATE 30.7 MEQ/L (21.0-32.0); BLOOD UREA NITROGEN 19 MG/DL (7-18); CHLORIDE 100 MEQ/L (98-107); GLOMERULAR FILTRATION RATE 49 ML/MIN (>89); GLUCOSE,FASTING 214 MG/DL (74-99); SODIUM (NA) 139 MEQ/L (136-145); TOTAL BILIRUBIN ADULT 0.5 MG/DL (0.2-1.0)
--- NOTE | 2016-07-19 13:56 | RADRPT ---
EXAM DATE/TIME: 07/19/2016 13:31 [facility] COMPARISON: No previous studies available for comparison. INDICATIONS : Evaluate for pneumonia, pneumothorax or communicable disease. Pre op WIRE ROLLER shunt. MEDICAL HISTORY : None. SURGICAL HISTORY : None. ENCOUNTER: Initial ACUITY: 1 day PAIN SCORE: 0/10 LOCATION: Bilateral chest FINDINGS: PA and lateral views of the chest demonstrate the lungs to be symmetrically aerated without evidence of mass, infiltrate or effusion. The cardiomediastinal contours are unremarkable. Osseous structure s are intact. No pneumothorax is noted. CONCLUSION: No acute disease. Juan Francisco Whitehead MD on July 19, 2016 at 13:54 Board Certified Radiologist. This report was verified electronically.
--- NOTE | 2016-07-20 18:43 | EKG ---
Date Performed: 07/19/2016 Time Performed: 12:48:40 PTAGE: 75 years EKG: SINUS BRADYCARDIA WITH OCCASIONAL SUPRAVENTRICULAR PREMATURE COMPLEXES INFERIOR MYOCARDIAL INFARCTION, PROBABLY OLD ABNORMAL ECG NO PREVIOUS TRACING DOCTOR: Jj Peters Interpretating Date/Time 07/20/2016 18:40:11
== END ==
LOC: CPRE 12:09
PROVIDERS: ATTEND Neurological Surgery
DX: Z01.812 Encounter for preprocedural laboratory examination (principal); Z01.811 Encounter for preprocedural respiratory examination; Z01.810 Encounter for preprocedural cardiovascular examination; G91.2 (Idiopathic) normal pressure hydrocephalus; R94.31 Abnormal electrocardiogram [ECG] [EKG]; Z79.01 Long term (current) use of anticoagulants
CPT/HCPCS: 36415; 71020; 80053; 81001; 85025; 85610; 85730; 86850; 86900; 86901; 86920; 93005